=== PATIENT | male | born 1960 | race Caucasian/White ===

== ENCOUNTER 2017-03-12 10:46 | Emergency (ER) | payer SELFPAY ==
[2017-03-12 10:58] VITALS: BMI 21.5
[2017-03-12] MEDS ORDERED: morphine CARPU-JECT 4 MG/1 ML DISP.SYRIN IM ONE (12:27)
[2017-03-12] MEDS ORDERED: DIPHTH,PERTUSS(ACELL),TET 0.5 ML DISP.SYRIN IM ONE (12:27)
--- NOTE | 2017-03-12 12:28 | PDOC ---
History of Present Illness - General Chief Complaint: Abscess Boil Stated Complaint: ABSCESS ON RT BUTTOCKS Time Seen by Provider: 03/12/17 12:03 History Source: Patient - History of Present Illness Timing/Duration: reports: other (2 days ago) Location: reports: genitalia Associated Symptoms: denies: fever Past History - Past Medical History Allergies/Adverse Reactions: Allergies Allergy/AdvReac Type Severity Reaction Status Date / Time No Known Allergies Allergy Verified 03/12/17 10:59 Home Medications: Ambulatory Orders Clindamycin [Cleocin -] 300 mg PO Q6HPO #27 capsule 03/12/17 Ibuprofen [Motrin -] 600 mg PO QID #28 tablet 03/12/17 Metformin HCl 500 mg PO BID 03/12/17 COPD: No Diabetes: Yes - Suicide/Smoking/Psychosocial Hx Smoking History: Current every day smoker Number of Cigarettes Smoked Daily: 20 Information on smoking cessation initiated: No Hx Alcohol Use: No Drug/Substance Use Hx: No Review of Systems - Review of Systems Constitutional: No: Chills, Fever Integumentary: Yes: Other (abscess) *Physical Exam - Vital Signs Last Vital Signs Temp Pulse Resp BP Pulse Ox 97.5 F L 112 H 20 144/81 98 03/12/17 10:55 03/12/17 10:55 03/12/17 10:55 03/12/17 10:55 03/12/17 10:55 - Physical Exam General Appearance: Yes: Appropriately Dressed, Moderate Distress HEENT: positive: Normal Voice Neck: positive: Supple Respiratory/Chest: negative: Respiratory Distress Integumentary: positive: Dry, Warm Neurologic: positive: Fully Oriented, Alert, Normal Mood/Affect Procedures - Incision and Drainage I&D Site: Right: Buttock (1, 6x7cm abscess and a 2x cm abscess, draines w/ copious purulent discharge) Betadine cleansed: Yes Anesthesia: 1% Lidocaine Volume(ml): 8 Blade Size: 11 Attempts: 1 Iodinated Packin/4 in Medical Decision Making - Medical Decision Making 03/12/17 12:28 57 yo M, h/o NIDDM, here w/ multiple abscesses to R gluteus x 2 days. No f/c. Denies trauma See exam Recurrent abscesses Tachy and appears very uncomfortable -pain control -boostrix -labs -wound cx -I&D -dc w/ abx 03/12/17 13:52 Signed out to resident pending labs *DC/Admit/Observation/Transfer Diagnosis at time of Disposition: Gluteal abscess - Discharge Dispostion Condition at time of disposition: Improved - Prescriptions Prescriptions: Clindamycin [Cleocin -] 300 mg PO Q6HPO #27 capsule Ibuprofen [Motrin -] 600 mg PO QID #28 tablet - Referrals - Patient Instructions Printed Discharge Instructions: DI for Incision and Drainage of a Skin Abscess Additional Instructions: Keep wound clean and dry and covered for next 2 days. Return to ER in 2 days for wound check. Take medications as directed. - Post Discharge Activity
[2017-03-12] MEDS ORDERED: morphine CARPU-JECT 10 MG/1 ML DISP.SYRIN ONE (12:56)
[2017-03-12] MEDS ORDERED: LIDOCAINE HCL 1%, 10 MG/ML (20ML VIAL) ONE (12:56)
[2017-03-12] MEDS ORDERED: CLINDAMYCIN HCL 150 MG CAPSULE (FP) PO ONE (13:37)
[2017-03-12] MEDS ORDERED: CLINDAMYCIN HCL 150 MG CAPSULE (FP) ONE (13:45)
--- NOTE | 2017-03-12 13:52 | PDOC ---
*Physical Exam - Vital Signs Last Vital Signs Temp Pulse Resp BP Pulse Ox 98.8 F 95 H 16 122/72 100 03/12/17 15:32 03/12/17 15:32 03/12/17 15:32 03/12/17 15:32 03/12/17 15:32 <Bruce Wilkerson - Last Filed: 03/12/17 18:22> - Vital Signs Last Vital Signs Temp Pulse Resp BP Pulse Ox 97.5 F L 112 H 20 144/81 98 03/12/17 10:55 03/12/17 10:55 03/12/17 10:55 03/12/17 10:55 03/12/17 10:55 <SandraVanessa - Last Filed: 03/15/17 14:25> ED Treatment Course - LABORATORY CBC & Chemistry Diagram: 03/12/17 13:47 03/12/17 13:47 - ADDITIONAL ORDERS Additional order review: Laboratory Results 03/12/17 13:47 Sodium 133 L Potassium 4.5 Chloride 98 Carbon Dioxide 20 L Anion Gap 15 BUN 14 Creatinine 0.8 Creat Clearance w eGFR > 60 Random Glucose 330 H* Calcium 9.1 Total Bilirubin 0.4 AST 7 L ALT 13 Alkaline Phosphatase 114 Total Protein 7.4 Albumin 3.4 03/12/17 13:36 Gram Stain - Final Abscess 03/12/17 13:47 RBC 5.42 MCV 79.0 L MCHC 31.7 L RDW 13.2 MPV 10.0 Neutrophils % No Result Required. Lymphocytes % No Result Required. - Medications Given in the ED: ED Medications Discontinued Medications Generic Name Dose Route Start Last Admin Trade Name Cori PRN Reason Stop Dose Admin Clindamycin HCl 300 mg 03/12/17 13:37 03/12/17 13:49 Cleocin - PO 03/12/17 13:38 300 mg ONCE ONE Administration Diphtheria/Tetanus/Acell Pertussis 0.5 ml 03/12/17 12:27 03/12/17 13:04 Boostrix - IM 03/12/17 12:28 0.5 ml .ONCE ONE Administration Sodium Chloride 1,000 mls @ 1,000 mls/hr 03/12/17 15:51 03/12/17 16:12 Normal Saline - IV 03/12/17 16:50 1,000 mls/hr ASDIR STA Administration Sodium Chloride 1,000 mls @ 1,000 mls/hr 03/12/17 17:09 03/12/17 17:12 Normal Saline - IV 03/12/17 18:08 1,000 mls/hr ASDIR STA Administration Morphine Sulfate 4 mg 03/12/17 12:27 03/12/17 13:03 Morphine Injection - IM 03/12/17 12:28 4 mg ONCE ONE Administration <Bruce Wilkerson - Last Filed: 03/12/17 18:22> - LABORATORY CBC & Chemistry Diagram: 03/12/17 13:47 03/12/17 13:47 - Medications Given in the ED: ED Medications Discontinued Medications Generic Name Dose Route Start Last Admin Trade Name Cori PRN Reason Stop Dose Admin Clindamycin HCl 300 mg 03/12/17 13:37 03/12/17 13:49 Cleocin - PO 03/12/17 13:38 300 mg ONCE ONE Administration Diphtheria/Tetanus/Acell Pertussis 0.5 ml 03/12/17 12:27 03/12/17 13:04 Boostrix - IM 03/12/17 12:28 0.5 ml .ONCE ONE Administration Morphine Sulfate 4 mg 03/12/17 12:27 03/12/17 13:03 Morphine Injection - IM 03/12/17 12:28 4 mg ONCE ONE Administration <Vanessa Flores - Last Filed: 03/15/17 14:25> Medical Decision Making - Medical Decision Making Patient signed out to me in stable condition s/p gluteal abscess drainage. However, his glucose were slightly elevated and he was slightly tachychardic. We rechecked vitals and sugars after 2 L of water ( he drank a gatorade after the first liter unknowingly) and glucose was in 200s with HR in the 90s prior to discharge. 03/15/17 14:16 <Vanessa Flores - Last Filed: 03/15/17 14:25> *DC/Admit/Observation/Transfer <Bruce Wilkerson - Last Filed: 03/12/17 18:22> - Discharge Dispostion Admit: No <Vanessa Flores - Last Filed: 03/15/17 14:25> Diagnosis at time of Disposition: Gluteal abscess - Discharge Dispostion Disposition: HOME Condition at time of disposition: Improved - Prescriptions Prescriptions: Clindamycin [Cleocin -] 300 mg PO TID #21 capsule Ibuprofen [Motrin -] 600 mg PO QID #28 tablet - Referrals - Patient Instructions Printed Discharge Instructions: DI for Incision and Drainage of a Skin Abscess Additional Instructions: Keep wound clean and dry and covered for next 2 days. Return to ER in 2 days for wound check. Take medications as directed. You must follow up with your primary doctor regarding your blood sugar control. Your blood sugars were elevated in the ER, which means you may need to have your diabetes medications adjusted. Uncontrolled blood sugar can result in serious illness, disability, or even . Please stop smoking!!! Your wounds will never heal if you keep smoking. - Post Discharge Activity
[2017-03-12 14:26] LABS: MCH 25.1 pg (25.7-33.7); MCHC 31.7 g/dl (32.0-35.9); PLATELET COUNT 298 K/MM3 (134-434); RDW 13.2 % (11.9-15.9); WHITE BLOOD COUNT 24.4 K/mm3 (4.0-10.0)
[2017-03-12 14:54] LABS: ALBUMIN 3.4 g/dl (3.4-5.0); ALK PHOS 114 U/L (45-117); ANION GAP 15 (8-16); BILIRUBIN,TOTAL 0.4 mg/dL (0.2-1.0); CALCIUM 9.1 mg/dL (8.5-10.1); CO2 20 mmol/L (21-32); CREATININE 0.8 mg/dL (0.7-1.3); SGOT/AST 7 U/L (15-37); SGPT/ALT 13 U/L (12-78); TOT PROT 7.4 g/dl (6.4-8.2)
[2017-03-12 15:33] VITALS: TEMP 98.8
[2017-03-12 15:40] LABS: GLUCOSE,RANDOM 330 mg/dL (74-106)
[2017-03-12] MEDS ORDERED: SODIUM CHLORIDE 1,000 ML IV STA ×2 (15:51→17:09)
[2017-03-12 19:01] VITALS: BP 119/64; PULSE 96
--- NOTE | 2017-03-13 08:08 | PDOC ---
Patient Follow-up (Call Back) - Post ED Follow - Up Condition at time of discharge: Improved Disposition at time of original discharge: HOME Reason for Call Back: Abnwl. Microbiology (Gram stain final shows moderate polymorphonuclear WBC along with few gram-positive cocci in clusters. Patient was placed on clindamycin upon discharge. I have reviewed patient's chart and have called him at home at [phone] and a lady answers the phone stating this is the wrong number and no one by this name lives there. Pt is to follow up here tomorrow. Due to elevated white count, tachycardia and criteria for SIRS and history of diabetes patient should have repeat labs and sent to the main ED. ) - Disposition Additional Instructions/Notes: P tcalled the ED since he states did not recieve his abx. Medication was sent to wrong pharmacy. Clindamycin sent to the medicine cabinet. pt questioned on s/ s or fever and states no worsening s./s, denying fever.
== END 2017-03-12 18:57 | disposition home or self-care (01) ==
LOC: JER 10:46
PROC: 0J990ZZ Drainage of Buttock Subcutaneous Tissue and Fascia, Open Approach (ICD-10-PCS; principal; 2017-03-12)
PROC: 3E0234Z Introduction of Serum, Toxoid and Vaccine into Muscle, Percutaneous Approach (ICD-10-PCS; 2017-03-12)
PROC: 3E023NZ Introduction of Analgesics, Hypnotics, Sedatives into Muscle, Percutaneous Approach (ICD-10-PCS; 2017-03-12)
PROC: 3E0337Z Introduction of Electrolytic and Water Balance Substance into Peripheral Vein, Percutaneous Approach (ICD-10-PCS; 2017-03-12)
DX: L02.31 Cutaneous abscess of buttock (principal); E11.9 Type 2 diabetes mellitus without complications; Z79.84 Long term (current) use of oral hypoglycemic drugs; F17.210 Nicotine dependence, cigarettes, uncomplicated
CPT/HCPCS: 36415; 80053; 85025; 87070; 87186; 87205; 90715; 99284-25

== ENCOUNTER 2017-03-14 17:39 | Emergency (ER) | payer SELFPAY ==
[2017-03-14 17:45] VITALS: BP 139/84; PULSE 112; TEMP 98.4; BMI 21.5
--- NOTE | 2017-03-14 17:45 | PDOC ---
Rapid Medical Evaluation Time Seen by Provider: 03/14/17 17:41 Medical Evaluation: Allergies Allergy/AdvReac Type Severity Reaction Status Date / Time No Known Allergies Allergy Verified 03/14/17 17:41 12 17:41 I performed a brief in-person evaluation of this patient. The patient presents with a chief complaint of: wound check. Reports dressing still in place on sacrum. Reports a little pain no fever or chills. Pertinent physical exam findings: NAD unlabored breathing, walks with a cane, unable to sit due to open wound from I & D abscess on right buttocks will defer orders to provider caring for patient; took analgesia before coming into emergency room The patient will proceed to the Ed for further evaluation
--- NOTE | 2017-03-14 18:37 | PDOC ---
History of Present Illness - General Chief Complaint: Revisit,Wound Recheck Stated Complaint: REVISIT, FOLLOW UP Time Seen by Provider: 03/14/17 17:41 History Source: Patient Exam Limitations: No Limitations - History of Present Illness Initial Comments: 03/14/17 18:32 CHIEF COMPLAINT: 03/12/2017 abscess I&D right buttock here for wound check HISTORY OF PRESENT ILLNESS: Patient is a 57-year-old male with history of diabetes presents for wound check to right buttock I&D performed on 03/12/2017 to 2 abscesses. Microbiology culture result reviewed, Staphylococcus aureus on clindamycin susceptible. Severity: Yes: moderate Associated Symptoms: reports: denies symptoms Past History - Past Medical History Allergies/Adverse Reactions: Allergies Allergy/AdvReac Type Severity Reaction Status Date / Time No Known Allergies Allergy Verified 03/14/17 17:41 Home Medications: Ambulatory Orders Ibuprofen [Motrin -] 600 mg PO QID #28 tablet 03/12/17 Metformin HCl 500 mg PO BID 03/12/17 Clindamycin [Cleocin -] 300 mg PO TID #21 capsule 03/13/17 Oxycodone HCl/Acetaminophen [Percocet 5-325 mg Tablet] 1 tab PO Q6H #8 tab MDD 4 03/14/17 COPD: No Diabetes: Yes - Suicide/Smoking/Psychosocial Hx Smoking History: Current every day smoker Have you smoked in the past 12 months: Yes Number of Cigarettes Smoked Daily: 20 Information on smoking cessation initiated: No Hx Alcohol Use: No Drug/Substance Use Hx: No Review of Systems - Review of Systems Integumentary: Yes: Other (there are 2 abscess to right buttock which are draining well significantly decreased induration. ). No: Erythema Neurological: No: Symptoms reported Endocrine: No: Symptoms Reported Hematologic/Lymphatic: No: Symptoms Reported All Other Systems: Reviewed and Negative *Physical Exam - Vital Signs Last Vital Signs Temp Pulse Resp BP Pulse Ox 98.4 F 112 H 19 139/84 99 03/14/17 17:41 03/14/17 17:41 03/14/17 17:41 03/14/17 17:41 03/14/17 17:41 - Physical Exam General Appearance: Yes: Appropriately Dressed. No: Apparent Distress Neck: negative: Tender lateral, Tender midline Respiratory/Chest: positive: Lungs Clear, Normal Breath Sounds. negative: Respiratory Distress, Accessory Muscle Use Cardiovascular: positive: Regular Rhythm, Regular Rate Lymphatic: negative: Adenopathy Musculoskeletal: positive: Normal Inspection Integumentary: positive: Other (there are 2 1-1/2 cm incisions to right buttock with serous drainage, no pus, areas with decreased induration). negative: Erythema, Swelling, Ecchymosis, Bruising Medical Decision Making - Medical Decision Making 03/14/17 18:36 Both of the packings were removed, sterile dressing reapplied, patient to continue current care, dressing change, clindamycin to continue until completed Follow-up with Dr. Moscoso. 03/14/17 18:40 Patient with pain 10 out of 10, percocet for 2 days ordered. *DC/Admit/Observation/Transfer Diagnosis at time of Disposition: Wound check, abscess - Discharge Dispostion Disposition: HOME Condition at time of disposition: Stable Admit: No - Prescriptions Prescriptions: Oxycodone HCl/Acetaminophen [Percocet 5-325 mg Tablet] 1 tab PO Q6H #8 tab MDD 4 - Referrals - Patient Instructions Printed Discharge Instructions: DI for Wound Infection Additional Instructions: Continue antibiotics until completed Recommend follow-up with dermatology Please cleanse area thoroughly with antibacterial soap and then reapply dressing twice a day Please make sure to monitor your sugars and medicate appropriately as per your human resources coordinator May return with any increased redness swelling or signs of infection - Post Discharge Activity
== END 2017-03-14 18:46 | disposition home or self-care (01) ==
LOC: JERFT 17:39
DX: L02.31 Cutaneous abscess of buttock (principal)
CPT/HCPCS: 99281-25

== ENCOUNTER 2020-09-28 20:54 | Inpatient (IN) | payer OTHER ==
[2020-09-28 21:32] LABS: BASO % 0.8 % (0-2.0); EOS % 0.6 % (0-4.5); HEMATOCRIT 43.3 % (35.4-49); HEMOGLOBIN 14.2 GM/dL (11.7-16.9); LYMPH % 13.9 % (8-40); MCH 25.6 pg (25.7-33.7); MCHC 32.7 g/dl (32.0-35.9); MEAN CELL VOLUME 78.3 fl (80-96); MEAN PLT VOLUME 8.8 fl (7.5-11.1); MONO % 5.3 % (3.8-10.2); NEUT % 79.4 % (42.8-82.8); PLATELET COUNT 230 10^3/uL (134-434); RBC 5.54 M/mm3 (4.00-5.60); RDW 13.4 % (11.9-15.9); WHITE BLOOD COUNT 15.1 K/mm3 (4.0-10.0)
[2020-09-28 21:41] LABS: INR 1.03 (0.83-1.09); PROTHROMBIN TIME (PATIENT) 12.6 SEC (9.7-13.0)
[2020-09-28 21:44] LABS: ACTIVATED PTT 29.9 SECONDS (25.2-36.5)
[2020-09-28 21:52] LABS: CHLORIDE 105 mmol/L (98-107); SODIUM 134 mmol/L (136-145)
[2020-09-28 21:53] LABS: CALCIUM 9.4 mg/dL (8.5-10.1)
[2020-09-28 21:54] LABS: ALBUMIN 4.3 g/dl (3.4-5.0); ANION GAP 6 MMOL/L (8-16); BLOOD UREA NITROGEN 15.3 mg/dL (7-18); CO2 24 mmol/L (21-32); GLUCOSE,RANDOM 179 mg/dL (74-106)
[2020-09-28 21:57] LABS: CREATININE 0.9 mg/dL (0.55-1.3); SGOT/AST 13 U/L (15-37); SGPT/ALT 16 U/L (13-61)
[2020-09-28 21:59] LABS: BILIRUBIN,TOTAL 0.4 mg/dL (0.2-1); TOT PROT 7.5 g/dl (6.4-8.2)
[2020-09-28 22:00] LABS: ALK PHOS 82 U/L (45-117)
[2020-09-28 22:02] LABS: N-TERMINAL BNP 35.4 pg/ml (5-125)
[2020-09-28] MEDS ORDERED: hydrOXYzine PAMOATE 25 MG CAPSULE (FP) PO ONE ×2 (22:06→22:26)
[2020-09-28] MEDS ORDERED: LACTATED RINGERS SOLUTION 1000 ML INFUS.BAG IV ONE (22:06)
[2020-09-29] MEDS ORDERED: ASPIRIN 81 MG CHEWABLE TABLETS PO ONE (00:49)
[2020-09-29] MEDS ORDERED: ASPIRIN 81 MG CHEWABLE TABLETS ONE (00:52)
[2020-09-29] MEDS ORDERED: ALBUTEROL SO4 2.5/IPRATROPIUM 0.5 INH SOL 3 ML VIAL.NEB. NEB PRN (03:12)
[2020-09-29] MEDS: BUDESONIDE/FORMETEROL FUMARATE 80/4.5 mcg INHALER IH SCH ×3 (03:33→21:57)
[2020-09-29 04:38] LABS: HEMATOCRIT 42.6 % (35.4-49); HEMOGLOBIN 13.9 GM/dL (11.7-16.9); MCH 25.4 pg (25.7-33.7); MCHC 32.5 g/dl (32.0-35.9); MEAN CELL VOLUME 78.3 fl (80-96); PLATELET COUNT 215 10^3/uL (134-434); RBC 5.45 M/mm3 (4.00-5.60); RDW 13.8 % (11.9-15.9); WHITE BLOOD COUNT 13.9 K/mm3 (4.0-10.0)
[2020-09-29 06:04] LABS: ARTERIAL BLD GAS O2 SATURATION 97.4 mmHg (95-98); ARTERIAL BLOOD GAS BASE EXCESS -3.9 mmol/L (-2-2); ARTERIAL BLOOD GAS PO2 96.2 mmHg (80-100); ARTERIAL BLOOD GAS pH 7.397 (7.350-7.450)
[2020-09-29 06:08] LABS: ALLENS TEST POSITIVE
[2020-09-29 07:22] LABS: CALCIUM 9.1 mg/dL (8.5-10.1)
[2020-09-29 07:23] LABS: BLOOD UREA NITROGEN 13.4 mg/dL (7-18); MAGNESIUM 2.2 mg/dL (1.8-2.4)
[2020-09-29 07:26] LABS: CREATININE 0.9 mg/dL (0.55-1.3)
[2020-09-29] MEDS ORDERED: ENOXAPARIN NA (PORCINE) 40 MG/0.4 ML DISP.SYRIN SQ ONE (09:46)
[2020-09-29] MEDS ORDERED: methylPREDNISolone NA SUCC 40 MG/1 ML VIAL ONE (09:47)
[2020-09-29] MEDS: ENOXAPARIN NA (PORCINE) 40 MG/0.4 ML DISP.SYRIN SQ SCH (09:55)
[2020-09-29] MEDS ORDERED: methylPREDNISolone NA SUCC 40 MG/1 ML VIAL IVPUSH SCH (10:00)
[2020-09-29] MEDS: ALPRAZolam 0.25 MG TABLET PO PRN ×2 (11:47→23:12)
[2020-09-29] MEDS: INSULIN SLIDING SCALE (NOVOLOG) 1 VIAL SQ SCH ×3 (11:47→22:01)
[2020-09-29] MEDS: ALBUTEROL SO4 2.5/IPRATROPIUM 0.5 INH SOL 3 ML VIAL.NEB. NEB SCH ×3 (12:00→20:30)
[2020-09-29] MEDS: NICOTINE 21 MG/24 HOURS TOPICAL PATCH TD SCH (12:23)
[2020-09-29] MEDS ORDERED: LACTATED RINGERS SOLUTION 1000 ML INFUS.BAG IV ONE (12:46)
[2020-09-29] MEDS: SODIUM CHLORIDE 0.45% 1,000 ML IV SCH (19:55)
[2020-09-29] MEDS: LISINOPRIL 10 MG TABLET PO SCH (19:55)
[2020-09-29] MEDS ORDERED: PT OWN MED DRAWER 7, Y5N ONE (21:18)
[2020-09-29] MEDS: ATORVASTATIN CA 40 MG TABLET (FP) PO SCH (21:57)
[2020-09-30] MEDS: INSULIN SLIDING SCALE (NOVOLOG) 1 VIAL SQ SCH ×4 (06:10→21:53)
[2020-09-30] MEDS: ALBUTEROL SO4 2.5/IPRATROPIUM 0.5 INH SOL 3 ML VIAL.NEB. NEB SCH ×3 (08:51→21:07)
[2020-09-30] MEDS: NICOTINE 21 MG/24 HOURS TOPICAL PATCH TD SCH (09:06)
[2020-09-30] MEDS: LISINOPRIL 10 MG TABLET PO SCH (09:07)
[2020-09-30] MEDS: ALPRAZolam 0.25 MG TABLET PO PRN ×2 (09:07→23:51)
[2020-09-30] MEDS: ENOXAPARIN NA (PORCINE) 40 MG/0.4 ML DISP.SYRIN SQ SCH (09:07)
[2020-09-30 09:48] LABS: HEMATOCRIT 42.4 % (35.4-49); HEMOGLOBIN 13.4 GM/dL (11.7-16.9); MCH 25.2 pg (25.7-33.7); MCHC 31.7 g/dl (32.0-35.9); MEAN CELL VOLUME 79.6 fl (80-96); MEAN PLT VOLUME 9.4 fl (7.5-11.1); PLATELET COUNT 224 10^3/uL (134-434); RBC 5.32 M/mm3 (4.00-5.60); RDW 13.7 % (11.9-15.9); WHITE BLOOD COUNT 16.8 K/mm3 (4.0-10.0)
[2020-09-30 10:06] LABS: CALCIUM 9.3 mg/dL (8.5-10.1)
[2020-09-30 10:07] LABS: BLOOD UREA NITROGEN 11.8 mg/dL (7-18); MAGNESIUM 2.4 mg/dL (1.8-2.4)
[2020-09-30 10:31] LABS: CREATININE 0.9 mg/dL (0.55-1.3)
[2020-09-30] MEDS ORDERED: INSULIN (NOVOLOG) ASPART 100 UNITS/ML 10ML VIAL ONE (11:01)
[2020-09-30] MEDS ORDERED: BISACODYL 10 MG SUPP.RECT PR PRN (11:03)
[2020-09-30] MEDS: POLYETHYLENE GLYCOL 3350 119 GM BTL PO SCH (11:04)
[2020-09-30] MEDS: BUDESONIDE/FORMETEROL FUMARATE 80/4.5 mcg INHALER IH SCH ×2 (11:04→21:54)
[2020-09-30] MEDS: DOCUSATE SODIUM 100 MG CAPSULE (FP) PO SCH (11:04)
[2020-09-30] MEDS: SODIUM CHLORIDE 0.45% 1,000 ML IV SCH (11:24)
[2020-09-30] MEDS: ATORVASTATIN CA 40 MG TABLET (FP) PO SCH (21:53)
[2020-09-30] MEDS: SENNOSIDES 8.6MG TABLET (FP) PO SCH (21:54)
[2020-10-01] MEDS: INSULIN SLIDING SCALE (NOVOLOG) 1 VIAL SQ SCH ×4 (06:08→21:56)
[2020-10-01] MEDS: ALBUTEROL SO4 2.5/IPRATROPIUM 0.5 INH SOL 3 ML VIAL.NEB. NEB SCH ×4 (07:40→20:39)
[2020-10-01] MEDS ORDERED: PT OWN MED DRAWER 7, Y5N ONE (09:04)
[2020-10-01] MEDS: LISINOPRIL 10 MG TABLET PO SCH (09:12)
[2020-10-01] MEDS: ENOXAPARIN NA (PORCINE) 40 MG/0.4 ML DISP.SYRIN SQ SCH (09:12)
[2020-10-01] MEDS: NICOTINE 21 MG/24 HOURS TOPICAL PATCH TD SCH (09:12)
[2020-10-01] MEDS: POLYETHYLENE GLYCOL 3350 119 GM BTL PO SCH (09:12)
[2020-10-01] MEDS: DOCUSATE SODIUM 100 MG CAPSULE (FP) PO SCH (09:12)
[2020-10-01] MEDS: BUDESONIDE/FORMETEROL FUMARATE 80/4.5 mcg INHALER IH SCH ×2 (09:13→21:19)
[2020-10-01] MEDS: ALPRAZolam 0.25 MG TABLET PO PRN (09:13)
[2020-10-01 09:28] LABS: HEMATOCRIT 44.1 % (35.4-49); HEMOGLOBIN 14.1 GM/dL (11.7-16.9); MCH 25.6 pg (25.7-33.7); MCHC 31.9 g/dl (32.0-35.9); MEAN CELL VOLUME 80.1 fl (80-96); MEAN PLT VOLUME 9.3 fl (7.5-11.1); PLATELET COUNT 217 10^3/uL (134-434); RDW 13.9 % (11.9-15.9); WHITE BLOOD COUNT 10.6 K/mm3 (4.0-10.0)
[2020-10-01 10:08] LABS: CALCIUM 9.3 mg/dL (8.5-10.1)
[2020-10-01 10:09] LABS: BLOOD UREA NITROGEN 12.9 mg/dL (7-18); MAGNESIUM 2.4 mg/dL (1.8-2.4)
[2020-10-01 10:12] LABS: CREATININE 0.8 mg/dL (0.55-1.3); PHOSPHOROUS 3.6 mg/dL (2.5-4.9)
[2020-10-01 11:41] LABS: HIV INTERPRETATION NEGATIVE (NEGATIVE)
[2020-10-01] MEDS: ATORVASTATIN CA 40 MG TABLET (FP) PO SCH (21:18)
[2020-10-01] MEDS: SENNOSIDES 8.6MG TABLET (FP) PO SCH (21:19)
[2020-10-01] MEDS ORDERED: ZOLPIDEM TARTRATE 5 MG TABLET PO ONE (22:00)
[2020-10-02] MEDS: INSULIN SLIDING SCALE (NOVOLOG) 1 VIAL SQ SCH ×3 (06:18→16:49)
[2020-10-02] MEDS: BUDESONIDE/FORMETEROL FUMARATE 80/4.5 mcg INHALER IH SCH ×2 (08:02→10:48)
[2020-10-02] MEDS: LISINOPRIL 10 MG TABLET PO SCH ×2 (08:02→10:48)
[2020-10-02] MEDS: ALPRAZolam 0.25 MG TABLET PO PRN (08:02)
[2020-10-02] MEDS: ALBUTEROL SO4 2.5/IPRATROPIUM 0.5 INH SOL 3 ML VIAL.NEB. NEB SCH ×3 (08:30→16:26)
[2020-10-02] MEDS ORDERED: ESCITALOPRAM OXALATE 10 MG TABLET PO SCH (10:00)
[2020-10-02] MEDS: DOCUSATE SODIUM 100 MG CAPSULE (FP) PO SCH (10:13)
[2020-10-02] MEDS: ENOXAPARIN NA (PORCINE) 40 MG/0.4 ML DISP.SYRIN SQ SCH (10:13)
[2020-10-02] MEDS: NICOTINE 21 MG/24 HOURS TOPICAL PATCH TD SCH ×2 (10:14→16:57)
[2020-10-02] MEDS: POLYETHYLENE GLYCOL 3350 119 GM BTL PO SCH (10:14)
[2020-10-02] MEDS ORDERED: REGADENOSON 0.4 MG/5 ML PRE-FILLED SYRINGE IVPUSH ONE ×2 (10:59→11:15)
[2020-10-02 13:01] VITALS: BMI 19.9
[2020-10-02 14:03] VITALS: BP 106/76; PULSE 99; TEMP 97.5
== END 2020-10-02 18:41 | disposition home or self-care (01) | DRG 115 ==
LOC: JER 20:54 → JERBED 09-29 01:50 → J6S 09-29 10:23
PROVIDERS: ADMIT Internal Medicine; ATTEND Internal Medicine
DX: G47.33 Obstructive sleep apnea (adult) (pediatric) (principal); R06.03 Acute respiratory distress; R07.9 Chest pain, unspecified; R63.4 Abnormal weight loss; D72.829 Elevated white blood cell count, unspecified; I51.9 Heart disease, unspecified; F17.200 Nicotine dependence, unspecified, uncomplicated; I10 Essential (primary) hypertension; E11.9 Type 2 diabetes mellitus without complications; E78.5 Hyperlipidemia, unspecified
CPT/HCPCS: 36415; 36600; 71045-TC-FY; 71275-TC; 74177-TC; 78452-TC; 80048; 80053; 80061; 82272; 82550; 82553; 82570; 82607; 82728; 82746; 82803; 82962; 83036; 83540; 83550; 83615; 83721; 83735; 83880; 84100; 84156; 84439; 84443; 84484; 85025; 85027; 85045; 85610; 85651; 85730; 86038; 86140; 87116; 87206; 87389; 93005; 93010; 93017; 93306-TC; 94150; 94640; 99285-25; A9502; C9803; J2785; Q9967; U0003; U0005

== ENCOUNTER 2021-02-28 17:34 | Observation (INO) | payer OTHER ==
[2021-02-28] MEDS ORDERED: ATORVASTATIN CA 80 MG TABLET (FP) PO ONE (18:59)
[2021-02-28] MEDS ORDERED: ASPIRIN 325 MG TABLET PO ONE (18:59)
[2021-02-28] MEDS ORDERED: ATORVASTATIN CA 80 MG TABLET (FP) ONE (19:29)
[2021-02-28] MEDS ORDERED: ASPIRIN 81 MG CHEWABLE TABLETS ONE (19:29)
[2021-02-28 19:43] LABS: BASO % 0.6 % (0-2.0); EOS % 0.8 % (0-4.5); HEMOGLOBIN 14.5 GM/dL (11.7-16.9); LYMPH % 24.2 % (8-40); MCH 25.6 pg (25.7-33.7); MCHC 32.3 g/dl (32.0-35.9); MEAN CELL VOLUME 79.3 fl (80-96); MONO % 6.5 % (3.8-10.2); NEUT % 67.9 % (42.8-82.8); PLATELET COUNT 217 10^3/uL (134-434); RBC 5.67 M/mm3 (4.00-5.60); RDW 13.9 % (11.9-15.9); WHITE BLOOD COUNT 12.3 K/mm3 (4.0-10.0)
[2021-02-28 19:52] LABS: INR 0.96 (0.83-1.09); PROTHROMBIN TIME (PATIENT) 10.7 SEC (9.7-13.0)
[2021-02-28 19:54] LABS: ACTIVATED PTT 32.3 SECONDS (25.2-36.5)
[2021-02-28 20:04] LABS: CHLORIDE 103 mmol/L (98-107); SODIUM 135 mmol/L (136-145)
[2021-02-28 20:06] LABS: ALBUMIN 3.9 g/dl (3.4-5.0); ANION GAP 7 MMOL/L (8-16); BLOOD UREA NITROGEN 15.1 mg/dL (7-18); CO2 25 mmol/L (21-32)
[2021-02-28 20:09] LABS: SGOT/AST 15 U/L (15-37); SGPT/ALT 35 U/L (13-61)
[2021-02-28 20:10] LABS: CHOLESTEROL 148 mg/dL (50-200); CREATININE 0.9 mg/dL (0.55-1.3); TRIGLYCERIDES 123 mg/dL (0-150)
[2021-02-28 20:11] LABS: BILIRUBIN,TOTAL 0.2 mg/dL (0.2-1); TOT PROT 7.4 g/dl (6.4-8.2)
[2021-02-28 20:12] LABS: ALK PHOS 122 U/L (45-117); HDL CHOLESTEROL 32 mg/dL (40-60)
[2021-02-28 20:40] LABS: LDL CHOLESTEROL (ONLY SJRH) 82 mg/dL (5-100)
[2021-02-28 20:45] LABS: GLUCOSE,RANDOM 413 mg/dL (74-106)
[2021-02-28 21:03] LABS: ERYTHROCYTE SEDIMENTATION RATE 11 mm/hr (0-20)
[2021-02-28] MEDS: NICOTINE 21 MG/24 HOURS TOPICAL PATCH TD SCH (23:00)
[2021-03-01 04:47] VITALS: BMI 20.4
[2021-03-01] MEDS: INSULIN SLIDING SCALE (NOVOLOG) 1 VIAL SQ SCH ×4 (06:25→22:07)
[2021-03-01 07:30] LABS: BASO % 0.4 % (0-2.0); EOS % 1.2 % (0-4.5); HEMATOCRIT 43.8 % (35.4-49); HEMOGLOBIN 14.2 GM/dL (11.7-16.9); LYMPH % 26.2 % (8-40); MCH 26.1 pg (25.7-33.7); MCHC 32.4 g/dl (32.0-35.9); MEAN CELL VOLUME 80.6 fl (80-96); MEAN PLT VOLUME 9.9 fl (7.5-11.1); MONO % 7.8 % (3.8-10.2); NEUT % 64.4 % (42.8-82.8); PLATELET COUNT 201 10^3/uL (134-434); RBC 5.43 M/mm3 (4.00-5.60); RDW 13.5 % (11.9-15.9); WHITE BLOOD COUNT 12.6 K/mm3 (4.0-10.0)
[2021-03-01 07:47] LABS: CHLORIDE 106 mmol/L (98-107); SODIUM 139 mmol/L (136-145)
[2021-03-01 07:50] LABS: ALBUMIN 3.4 g/dl (3.4-5.0); ANION GAP 4 MMOL/L (8-16); BLOOD UREA NITROGEN 13.2 mg/dL (7-18); CALCIUM 8.8 mg/dL (8.5-10.1); CO2 29 mmol/L (21-32); MAGNESIUM 2.2 mg/dL (1.8-2.4)
[2021-03-01 07:51] LABS: GLUCOSE,RANDOM 236 mg/dL (74-106)
[2021-03-01 07:53] LABS: SGOT/AST 15 U/L (15-37); SGPT/ALT 33 U/L (13-61)
[2021-03-01 07:54] LABS: CREATININE 0.8 mg/dL (0.55-1.3); PHOSPHOROUS 3.6 mg/dL (2.5-4.9)
[2021-03-01 07:55] LABS: BILIRUBIN,TOTAL 0.8 mg/dL (0.2-1); TOT PROT 6.6 g/dl (6.4-8.2)
[2021-03-01 07:56] LABS: ALK PHOS 103 U/L (45-117)
[2021-03-01] MEDS: NICOTINE 21 MG/24 HOURS TOPICAL PATCH TD SCH ×2 (10:36→10:42)
[2021-03-01] MEDS: ASPIRIN 81 MG CHEWABLE TABLETS PO SCH ×2 (10:36→10:42)
[2021-03-01] MEDS: ENOXAPARIN NA (PORCINE) 40 MG/0.4 ML DISP.SYRIN SQ SCH ×2 (10:36→10:42)
[2021-03-01] MEDS: ESCITALOPRAM OXALATE 10 MG TABLET PO SCH ×2 (10:36→10:42)
[2021-03-01] MEDS: LISINOPRIL 10 MG TABLET PO SCH ×2 (10:37→10:42)
[2021-03-01] MEDS ORDERED: INSULIN (LEVEMIR) 100 UNITS/ML UNITS SQ ONE (11:17)
[2021-03-01 11:38] LABS: PH,URINE 5.5 (5.0-8.0); URINE APPEARANCE CLEAR; URINE BILIRUBIN NEGATIVE (NEGATIVE); URINE COLOR YELLOW; URINE GLUCOSE (UA) 3+ (NEGATIVE); URINE KETONE NEGATIVE (NEGATIVE); URINE LEUK ESTERASE NEGATIVE (NEGATIVE); URINE NITRITE NEGATIVE (NEGATIVE); URINE PROTEIN NEGATIVE (NEGATIVE)
[2021-03-01] MEDS ORDERED: metoPROLOL SUCCINATE 25 MG TAB.SR.24H (FP) PO SCH (22:00)
[2021-03-01] MEDS ORDERED: ATORVASTATIN CA 40 MG TABLET (FP) PO SCH (22:00)
[2021-03-02] MEDS ORDERED: metFORMIN HCL 500 MG TABLET (FP) ONE (04:59)
[2021-03-02] MEDS ORDERED: sitaGLIPtin PHOSPHATE 50 MG TABLET ONE (05:01)
[2021-03-02] MEDS: metFORMIN HCL 500 MG TABLET (FP) PO SCH ×2 (06:21→18:10)
[2021-03-02] MEDS: INSULIN SLIDING SCALE (NOVOLOG) 1 VIAL SQ SCH ×3 (06:22→18:09)
[2021-03-02] MEDS ORDERED: INSULIN (LEVEMIR) 100 UNITS/ML UNITS SQ SCH ×2 (07:00)
[2021-03-02] MEDS ORDERED: PT OWN MED DRAWER 7, Y5N ONE ×2 (09:20→09:35)
[2021-03-02] MEDS: ENOXAPARIN NA (PORCINE) 40 MG/0.4 ML DISP.SYRIN SQ SCH (09:21)
[2021-03-02] MEDS: NICOTINE 21 MG/24 HOURS TOPICAL PATCH TD SCH (09:21)
[2021-03-02] MEDS: ASPIRIN 81 MG CHEWABLE TABLETS PO SCH (09:21)
[2021-03-02] MEDS: ESCITALOPRAM OXALATE 10 MG TABLET PO SCH (09:21)
[2021-03-02] MEDS ORDERED: LISINOPRIL 5 MG TABLET PO SCH (10:00)
[2021-03-02] MEDS ORDERED: METHIMAZOLE 5 MG TABLET PO SCH (10:00)
[2021-03-02 12:33] LABS: CALCIUM 9.2 mg/dL (8.5-10.1)
[2021-03-02 12:34] LABS: ALBUMIN 3.5 g/dl (3.4-5.0); BLOOD UREA NITROGEN 17.1 mg/dL (7-18); MAGNESIUM 2.3 mg/dL (1.8-2.4)
[2021-03-02 12:37] LABS: CREATININE 0.7 mg/dL (0.55-1.3); PHOSPHOROUS 4.6 mg/dL (2.5-4.9)
[2021-03-02 12:39] LABS: BILIRUBIN,TOTAL 0.4 mg/dL (0.2-1); TOT PROT 6.7 g/dl (6.4-8.2)
[2021-03-02 14:25] VITALS: BP 104/61; PULSE 73; TEMP 98.3
== END 2021-03-02 23:56 | disposition home or self-care (01) ==
LOC: JER 17:34 → JERBED 22:04 → INTOOBSV 22:04 → UNDOADMOB 22:04 → JERBED 03-01 04:23 → J4W 03-01 04:23
PROVIDERS: ADMIT Internal Medicine; ATTEND Internal Medicine
PROC: 3E023GC Introduction of Other Therapeutic Substance into Muscle, Percutaneous Approach (ICD-10-PCS; principal; 2021-03-01)
PROC: 3E023GC Introduction of Other Therapeutic Substance into Muscle, Percutaneous Approach (ICD-10-PCS; 2021-03-01)
PROC: 3E013VG Introduction of Insulin into Subcutaneous Tissue, Percutaneous Approach (ICD-10-PCS; 2021-03-01)
DX: E11.8 Type 2 diabetes mellitus with unspecified complications (principal); H53.8 Other visual disturbances; I10 Essential (primary) hypertension; E78.5 Hyperlipidemia, unspecified; E05.30 Thyrotoxicosis from ectopic thyroid tissue without thyrotoxic crisis or storm; J44.9 Chronic obstructive pulmonary disease, unspecified; R63.4 Abnormal weight loss; R10.9 Unspecified abdominal pain; R07.9 Chest pain, unspecified; L02.31 Cutaneous abscess of buttock; Z51.89 Encounter for other specified aftercare; R06.00 Dyspnea, unspecified; E05.90 Thyrotoxicosis, unspecified without thyrotoxic crisis or storm; M79.10 Myalgia, unspecified site; R20.0 Anesthesia of skin; F17.210 Nicotine dependence, cigarettes, uncomplicated
CPT/HCPCS: 36415; 70450-TC; 70551-TC; 71045-TC-FY; 76512; 80053; 80061; 81003; 82550; 82962; 83036; 83735; 84100; 84439; 84443; 84481; 84484; 85025; 85610; 85651; 85730; 86140; 86850; 86900; 86901; 93005; 93010; 93306-TC; 93880-TC; 96372; 99285-25; C9803; G0378; U0003; U0005

== ENCOUNTER 2021-12-20 10:32 | Inpatient (IN) | payer OTHER ==
[2021-12-20] MEDS ORDERED: ACETAMINOPHEN 1000 MG/100 ML BAG IVPB ONE (11:38)
[2021-12-20] MEDS ORDERED: ACETAMINOPHEN INJECTION 100 ML IVPB ONE (12:19)
[2021-12-20 12:36] LABS: BASO % 0.4 % (0-2.0); EOS % 0.9 % (0-4.5); HEMATOCRIT 41.3 % (35.4-49); HEMOGLOBIN 13.2 GM/dL (11.7-16.9); LYMPH % 16.6 % (8-40); MCH 25.6 pg (25.7-33.7); MCHC 32.1 g/dl (32.0-35.9); MEAN CELL VOLUME 79.9 fl (80-96); MEAN PLT VOLUME 9.2 fl (7.5-11.1); MONO % 6.8 % (3.8-10.2); NEUT % 75.3 % (42.8-82.8); PLATELET COUNT 252 10^3/uL (134-434); RBC 5.17 M/mm3 (4.00-5.60); RDW 14.5 % (11.9-15.9); WHITE BLOOD COUNT 14.1 K/mm3 (4.0-10.0)
[2021-12-20 12:44] LABS: INR 1.12 (0.83-1.09); PROTHROMBIN TIME (PATIENT) 12.9 SEC (9.7-13.0)
[2021-12-20 12:56] LABS: ALBUMIN 3.4 g/dl (3.4-5.0)
[2021-12-20 12:57] LABS: BLOOD UREA NITROGEN 15.8 mg/dL (7-18)
[2021-12-20 12:59] LABS: CREATININE 0.9 mg/dL (0.55-1.3)
[2021-12-20 13:00] LABS: BILIRUBIN,TOTAL 0.5 mg/dL (0.2-1)
[2021-12-20] MEDS ORDERED: VANCOMYCIN 1 GM/200 ML PREMIX BAG IVPB ONE (15:18)
[2021-12-20] MEDS ORDERED: VANCOMYCIN/WATER FOR INJ (PEG) 1,000 MG/200 ML BAG IVPB ONE (15:24)
[2021-12-20] MEDS ORDERED: SODIUM ZIRCONIUM CYCLOSILICATE (LOKELMA) 5 GM PACKET PO SCH (16:30)
[2021-12-20] MEDS ORDERED: SODIUM CHLORIDE 0.45% 1,000 ML IV SCH (16:30)
[2021-12-20] MEDS: ACETAMINOPHEN 325 MG TABLET (FP) PO PRN (18:00)
[2021-12-20] MEDS: INSULIN SLIDING SCALE (NOVOLOG) 1 VIAL SQ SCH ×2 (18:55→22:11)
[2021-12-20] MEDS: traMADol HCL 50 MG TABLET PO PRN (21:22)
[2021-12-20] MEDS: HEPARIN NA (PORCINE) 5,000 UNITS/ML 1ML VIAL SQ SCH (21:22)
[2021-12-20] MEDS ORDERED: ATORVASTATIN CA 40 MG TABLET (FP) PO SCH (22:00)
[2021-12-21] MEDS: ACETAMINOPHEN 325 MG TABLET (FP) PO PRN ×2 (01:24→19:53)
[2021-12-21] MEDS: traMADol HCL 50 MG TABLET PO PRN ×2 (05:15→13:39)
[2021-12-21] MEDS: INSULIN SLIDING SCALE (NOVOLOG) 1 VIAL SQ SCH ×4 (06:52→21:50)
[2021-12-21] MEDS ORDERED: sitaGLIPtin PHOSPHATE 50 MG TABLET PO SCH (07:00)
[2021-12-21 08:33] LABS: URINE APPEARANCE CLEAR; URINE BILIRUBIN NEGATIVE (NEGATIVE); URINE COLOR YELLOW; URINE GLUCOSE (UA) 1+ (NEGATIVE); URINE KETONE NEGATIVE (NEGATIVE); URINE LEUK ESTERASE NEGATIVE (NEGATIVE); URINE NITRITE NEGATIVE (NEGATIVE); URINE PROTEIN NEGATIVE (NEGATIVE); URINE UROBILINOGEN 0.2 mg/dL (0.2-1.0)
[2021-12-21] MEDS ORDERED: oxyCODONE HCL 5 MG TABLET PO PRN (08:41)
[2021-12-21] MEDS ORDERED: traMADol HCL 50 MG TABLET PO PRN (08:41)
[2021-12-21] MEDS: HEPARIN NA (PORCINE) 5,000 UNITS/ML 1ML VIAL SQ SCH ×2 (09:08→21:40)
[2021-12-21] MEDS ORDERED: PIPERACILLIN/TAZOBACTAM 3.375 GM VIAL IVPB ONE (09:31)
[2021-12-21] MEDS ORDERED: ONDANSETRON 4 MG/2 ML VIAL IVPUSH PRN ×2 (09:36→11:09)
[2021-12-21] MEDS ORDERED: MIDAZOLAM HCL 2 MG/2 ML SINGLE DOSE VIAL ONE (09:53)
[2021-12-21] MEDS ORDERED: PROPOFOL 20 ML ONE (09:54)
[2021-12-21] MEDS ORDERED: LIDOCAINE HCL 1%, 10 MG/ML (20ML VIAL) INF ONE (09:56)
[2021-12-21] MEDS ORDERED: BUPIVACAINE HCL/PF 0.5% (5MG/ML) 10 ML VIAL IJ ONE (09:56)
[2021-12-21 09:57] LABS: BASO % 0.6 % (0-2.0); EOS % 0.7 % (0-4.5); HEMATOCRIT 40.9 % (35.4-49); LYMPH % 15.3 % (8-40); MCH 25.4 pg (25.7-33.7); MCHC 31.9 g/dl (32.0-35.9); MEAN CELL VOLUME 79.7 fl (80-96); MEAN PLT VOLUME 9.3 fl (7.5-11.1); MONO % 7.3 % (3.8-10.2); NEUT % 76.1 % (42.8-82.8); PLATELET COUNT 263 10^3/uL (134-434); RBC 5.13 M/mm3 (4.00-5.60); RDW 14.2 % (11.9-15.9); WHITE BLOOD COUNT 14.2 K/mm3 (4.0-10.0)
[2021-12-21] MEDS ORDERED: ESCITALOPRAM OXALATE 10 MG TABLET PO SCH (10:00)
[2021-12-21] MEDS ORDERED: VANCOMYCIN 1 GM in NS (PRE-DOCKED) 1,000 MG/250 ML IVPB ONE (10:00)
[2021-12-21] MEDS ORDERED: METHIMAZOLE 5 MG TABLET PO SCH (10:00)
[2021-12-21] MEDS ORDERED: LISINOPRIL 20 MG TABLET PO SCH (10:00)
[2021-12-21 10:04] LABS: INR 1.18 (0.83-1.09); PROTHROMBIN TIME (PATIENT) 13.6 SEC (9.7-13.0)
[2021-12-21] MEDS ORDERED: VANCOMYCIN 1,000 MG VIAL (RESTRICTED TO ID ONLY) ONE (10:06)
[2021-12-21] MEDS ORDERED: LIDOCAINE HCL 1%, 10 MG/ML (20ML VIAL) ONE (10:06)
[2021-12-21 10:15] LABS: ALBUMIN 3.2 g/dl (3.4-5.0); BLOOD UREA NITROGEN 12.6 mg/dL (7-18)
[2021-12-21 10:18] LABS: CREATININE 0.8 mg/dL (0.55-1.3)
[2021-12-21 10:19] LABS: BILIRUBIN,TOTAL 0.5 mg/dL (0.2-1)
[2021-12-21 10:20] LABS: TOT PROT 6.3 g/dl (6.4-8.2)
[2021-12-21] MEDS: oxyCODONE HCL 5 MG TABLET PO PRN (12:41)
[2021-12-21] MEDS ORDERED: VANCOMYCIN 1,000 MG in DEXTROSE 5%-WATER - 250 ML IVPB SCH (13:00)
[2021-12-21] MEDS: PIPERACILLIN/TAZOB 3.375 GM 3.375 GM in DEXTROSE 5%-WATER - 50 ML IVPB SCH ×2 (13:35→17:41)
[2021-12-21] MEDS: VANCOMYCIN/WATER FOR INJ (PEG) 1,000 MG/200 ML BAG IVPB SCH (14:15)
[2021-12-21] MEDS ORDERED: INSULIN (NOVOLOG) ASPART 100 UNITS/ML 10ML VIAL ONE (21:08)
[2021-12-21] MEDS: ATORVASTATIN CA 40 MG TABLET (FP) PO SCH (21:40)
[2021-12-22] MEDS: PIPERACILLIN/TAZOB 3.375 GM 3.375 GM in DEXTROSE 5%-WATER - 50 ML IVPB SCH ×3 (02:27→17:02)
[2021-12-22] MEDS: oxyCODONE HCL 5 MG TABLET PO PRN (02:33)
[2021-12-22] MEDS: traMADol HCL 50 MG TABLET PO PRN (05:08)
[2021-12-22] MEDS: INSULIN SLIDING SCALE (NOVOLOG) 1 VIAL SQ SCH ×4 (06:25→21:50)
[2021-12-22] MEDS ORDERED: sitaGLIPtin PHOSPHATE 50 MG TABLET PO SCH (07:00)
[2021-12-22 08:37] LABS: HEMATOCRIT 36.2 % (35.4-49); HEMOGLOBIN 11.4 GM/dL (11.7-16.9); MCH 25.1 pg (25.7-33.7); MCHC 31.4 g/dl (32.0-35.9); MEAN PLT VOLUME 9.4 fl (7.5-11.1); PLATELET COUNT 236 10^3/uL (134-434); RBC 4.52 M/mm3 (4.00-5.60); RDW 13.9 % (11.9-15.9); WHITE BLOOD COUNT 12.8 K/mm3 (4.0-10.0)
[2021-12-22 08:54] LABS: ALBUMIN 2.8 g/dl (3.4-5.0); CALCIUM 8.5 mg/dL (8.5-10.1); MAGNESIUM 2.1 mg/dL (1.8-2.4)
[2021-12-22 08:57] LABS: CREATININE 1.1 mg/dL (0.55-1.3)
[2021-12-22 08:59] LABS: BILIRUBIN,TOTAL 0.5 mg/dL (0.2-1); TOT PROT 5.8 g/dl (6.4-8.2)
[2021-12-22] MEDS: ESCITALOPRAM OXALATE 10 MG TABLET PO SCH (09:36)
[2021-12-22] MEDS: LISINOPRIL 20 MG TABLET PO SCH (09:36)
[2021-12-22] MEDS: METHIMAZOLE 5 MG TABLET PO SCH (09:36)
[2021-12-22] MEDS: HEPARIN NA (PORCINE) 5,000 UNITS/ML 1ML VIAL SQ SCH ×2 (09:38→21:40)
[2021-12-22] MEDS: VANCOMYCIN/WATER FOR INJ (PEG) 1,000 MG/200 ML BAG IVPB SCH (14:20)
[2021-12-22] MEDS: NICOTINE 21 MG/24 HOURS TOPICAL PATCH TD SCH (17:02)
[2021-12-22] MEDS: ATORVASTATIN CA 40 MG TABLET (FP) PO SCH (21:40)
[2021-12-23] MEDS: VANCOMYCIN/WATER FOR INJ (PEG) 1 GM/200 ML BAG IVPB SCH ×2 (00:50→12:45)
[2021-12-23] MEDS: INSULIN SLIDING SCALE (NOVOLOG) 1 VIAL SQ SCH ×4 (06:24→21:46)
[2021-12-23] MEDS: GLIMEPIRIDE 2 MG TABLET PO SCH (06:27)
[2021-12-23] MEDS: metFORMIN HCL 500 MG TABLET (FP) PO SCH ×2 (06:27→17:22)
[2021-12-23] MEDS: sitaGLIPtin PHOSPHATE 50 MG TABLET PO SCH (06:28)
[2021-12-23] MEDS: HEPARIN NA (PORCINE) 5,000 UNITS/ML 1ML VIAL SQ SCH ×2 (09:29→21:46)
[2021-12-23] MEDS: ESCITALOPRAM OXALATE 10 MG TABLET PO SCH (09:29)
[2021-12-23] MEDS: LISINOPRIL 20 MG TABLET PO SCH (09:30)
[2021-12-23] MEDS: METHIMAZOLE 5 MG TABLET PO SCH (09:30)
[2021-12-23] MEDS: NICOTINE 21 MG/24 HOURS TOPICAL PATCH TD SCH (09:31)
[2021-12-23] MEDS: oxyCODONE HCL 5 MG TABLET PO PRN (11:30)
[2021-12-23] MEDS: ACETAMINOPHEN 325 MG TABLET (FP) PO PRN (11:30)
[2021-12-23 11:34] LABS: BASO % 0.5 % (0-2.0); HEMATOCRIT 40.5 % (35.4-49); HEMOGLOBIN 12.9 GM/dL (11.7-16.9); LYMPH % 16.6 % (8-40); MCH 25.4 pg (25.7-33.7); MEAN CELL VOLUME 79.4 fl (80-96); MEAN PLT VOLUME 8.9 fl (7.5-11.1); MONO % 6.5 % (3.8-10.2); NEUT % 75.4 % (42.8-82.8); PLATELET COUNT 262 10^3/uL (134-434); RDW 13.9 % (11.9-15.9); WHITE BLOOD COUNT 11.6 K/mm3 (4.0-10.0)
[2021-12-23] MEDS: ATORVASTATIN CA 40 MG TABLET (FP) PO SCH (21:46)
[2021-12-24] MEDS: CEFAZOLIN 1 GM in DEXTROSE 5%-WATER - 50 ML IVPB SCH ×3 (02:18→17:52)
[2021-12-24] MEDS: oxyCODONE HCL 5 MG TABLET PO PRN (02:26)
[2021-12-24] MEDS: GLIMEPIRIDE 2 MG TABLET PO SCH (06:01)
[2021-12-24] MEDS: sitaGLIPtin PHOSPHATE 50 MG TABLET PO SCH (06:02)
[2021-12-24] MEDS: metFORMIN HCL 500 MG TABLET (FP) PO SCH ×2 (06:02→17:52)
[2021-12-24] MEDS: INSULIN SLIDING SCALE (NOVOLOG) 1 VIAL SQ SCH ×4 (06:09→22:28)
[2021-12-24] MEDS: NICOTINE 21 MG/24 HOURS TOPICAL PATCH TD SCH (10:00)
[2021-12-24] MEDS: TRIAMCINOLONE ACET 0.1% CREAM 15 GM TUBE TP SCH ×2 (10:00→22:29)
[2021-12-24] MEDS: HEPARIN NA (PORCINE) 5,000 UNITS/ML 1ML VIAL SQ SCH ×2 (10:00→22:28)
[2021-12-24] MEDS: METHIMAZOLE 5 MG TABLET PO SCH (10:01)
[2021-12-24] MEDS: ESCITALOPRAM OXALATE 10 MG TABLET PO SCH (10:01)
[2021-12-24] MEDS: LISINOPRIL 20 MG TABLET PO SCH (10:01)
[2021-12-24 12:43] LABS: BASO % 0.6 % (0-2.0); EOS % 1.3 % (0-4.5); HEMATOCRIT 39.5 % (35.4-49); HEMOGLOBIN 12.9 GM/dL (11.7-16.9); LYMPH % 19.5 % (8-40); MCH 26.1 pg (25.7-33.7); MCHC 32.7 g/dl (32.0-35.9); MEAN CELL VOLUME 79.9 fl (80-96); MONO % 7.5 % (3.8-10.2); NEUT % 71.1 % (42.8-82.8); PLATELET COUNT 263 10^3/uL (134-434); RBC 4.95 M/mm3 (4.00-5.60); RDW 14.1 % (11.9-15.9); WHITE BLOOD COUNT 10.4 K/mm3 (4.0-10.0)
[2021-12-24] MEDS: ATORVASTATIN CA 40 MG TABLET (FP) PO SCH (22:28)
[2021-12-25] MEDS: CEFAZOLIN 1 GM in DEXTROSE 5%-WATER - 50 ML IVPB SCH ×3 (02:12→17:35)
[2021-12-25] MEDS: oxyCODONE HCL 5 MG TABLET PO PRN (02:50)
[2021-12-25] MEDS: sitaGLIPtin PHOSPHATE 50 MG TABLET PO SCH (06:45)
[2021-12-25] MEDS: metFORMIN HCL 500 MG TABLET (FP) PO SCH ×2 (06:45→17:25)
[2021-12-25] MEDS: INSULIN SLIDING SCALE (NOVOLOG) 1 VIAL SQ SCH ×3 (06:45→17:26)
[2021-12-25] MEDS: GLIMEPIRIDE 2 MG TABLET PO SCH (06:45)
[2021-12-25] MEDS: traMADol HCL 50 MG TABLET PO PRN (06:46)
[2021-12-25 08:26] LABS: HEMATOCRIT 39.8 % (35.4-49); HEMOGLOBIN 12.8 GM/dL (11.7-16.9); MCH 25.6 pg (25.7-33.7); MCHC 32.2 g/dl (32.0-35.9); MEAN CELL VOLUME 79.2 fl (80-96); MEAN PLT VOLUME 8.9 fl (7.5-11.1); PLATELET COUNT 269 10^3/uL (134-434); RBC 5.02 M/mm3 (4.00-5.60); RDW 14.2 % (11.9-15.9); WHITE BLOOD COUNT 10.4 K/mm3 (4.0-10.0)
[2021-12-25 08:54] LABS: CALCIUM 9.2 mg/dL (8.5-10.1)
[2021-12-25 08:55] LABS: BLOOD UREA NITROGEN 15.3 mg/dL (7-18); MAGNESIUM 2.2 mg/dL (1.8-2.4)
[2021-12-25 08:58] LABS: CREATININE 0.8 mg/dL (0.55-1.3)
[2021-12-25] MEDS: LISINOPRIL 20 MG TABLET PO SCH (10:19)
[2021-12-25] MEDS: TRIAMCINOLONE ACET 0.1% CREAM 15 GM TUBE TP SCH (10:19)
[2021-12-25] MEDS: ESCITALOPRAM OXALATE 10 MG TABLET PO SCH (10:19)
[2021-12-25] MEDS: METHIMAZOLE 5 MG TABLET PO SCH (10:19)
[2021-12-25] MEDS: NICOTINE 21 MG/24 HOURS TOPICAL PATCH TD SCH (10:21)
[2021-12-25] MEDS: HEPARIN NA (PORCINE) 5,000 UNITS/ML 1ML VIAL SQ SCH (10:21)
[2021-12-25 10:26] VITALS: RESP 20
[2021-12-25 15:55] VITALS: BP 119/63; PULSE 80; TEMP 98.1
== END 2021-12-25 17:35 | disposition home health service (06) | DRG 383 ==
LOC: JER 10:32 → JERBED 13:33 → J8W 15:37
PROVIDERS: ADMIT Family Medicine; ATTEND Family Medicine
PROC: 0Y9N0ZZ Drainage of Left Foot, Open Approach (ICD-10-PCS; 2021-12-21)
PROC: 0JBR0ZZ Excision of Left Foot Subcutaneous Tissue and Fascia, Open Approach (ICD-10-PCS; principal; 2021-12-21 10:04)
DX: L02.612 Cutaneous abscess of left foot (principal); E11.621 Type 2 diabetes mellitus with foot ulcer; E05.90 Thyrotoxicosis, unspecified without thyrotoxic crisis or storm; Z91.19 Patient's noncompliance with other medical treatment and regimen; E11.65 Type 2 diabetes mellitus with hyperglycemia; E87.5 Hyperkalemia; I10 Essential (primary) hypertension; F17.210 Nicotine dependence, cigarettes, uncomplicated
CPT/HCPCS: 36415; 73030-TC-RT-FY; 73630-TC-LT; 73718-TC-LT; 80048; 80053; 81003; 82962; 83036; 83605; 83735; 84439; 84443; 85025; 85027; 85610; 85651; 86140; 86850; 86900; 86901; 87040; 87070; 87186; 87205; 88304-TC; 94760; 97116-GP; 97162-GP; 99285-25; C9803-CS; J1644; U0003; U0005

== ENCOUNTER 2021-12-26 11:20 | Day surgery (SDC) | payer OTHER ==
[2021-12-26] MEDS ORDERED: DALBAVANCIN HCL 1,500 MG in DEXTROSE 5%-WATER - 500 ML IVPB ONE (12:30)
[2021-12-26 12:36] VITALS: RESP 18; TEMP 98
[2021-12-26 13:41] VITALS: BP 100/52; PULSE 96
== END 2021-12-26 13:16 | disposition home or self-care (01) ==
LOC: FINFUSION 11:20 → FM/S 11:27 → FINFUSION 13:00
PROVIDERS: ATTEND Internal Medicine Infectious Disease
DX: E11.621 Type 2 diabetes mellitus with foot ulcer (principal); L97.509 Non-pressure chronic ulcer of other part of unspecified foot with unspecified severity; L03.116 Cellulitis of left lower limb; Z91.19 Patient's noncompliance with other medical treatment and regimen
CPT/HCPCS: 96365; J0875

== ENCOUNTER 2022-01-04 10:32 | Day surgery (SDC) | payer OTHER ==
[2022-01-04] MEDS ORDERED: DALBAVANCIN HCL 1,500 MG in DEXTROSE 5%-WATER - 500 ML IVPB ONE (11:15)
[2022-01-04 12:20] VITALS: BP 134/74; PULSE 78; RESP 17; TEMP 97.4
== END 2022-01-04 12:21 | disposition home or self-care (01) ==
LOC: FINFUSION 10:32 → FM/S 10:33 → FINFUSION 12:21
PROVIDERS: ATTEND Internal Medicine Infectious Disease
DX: E11.621 Type 2 diabetes mellitus with foot ulcer (principal); L97.509 Non-pressure chronic ulcer of other part of unspecified foot with unspecified severity; L03.116 Cellulitis of left lower limb; Z91.19 Patient's noncompliance with other medical treatment and regimen; Z79.4 Long term (current) use of insulin
CPT/HCPCS: 96365; J0875